=== PATIENT | female | born 1960 | race Two or more races ===

== ENCOUNTER 2019-09-07 13:40 | Emergency (ER) | payer MEDICAID, MEDICARE ==
[~2019-09-07] VITALS: Ht 162.6 cm; Wt 70.0 kg
[~2019-09-07 13:40] MED LIST: B CO1TAB6 PO; CARB200T PO; KEPP250 PO; LAMO50TA3 PO; MEGE40TA27 PO; PHEN-434 PO; TEMA7.5C PO
[2019-09-07 14:19] VITALS: BP 147/71
[2019-09-07] MEDS ORDERED: SODIUM CHLORIDE 0.9% 1,000 ML IV ONE (14:41)
[2019-09-07] MEDS ORDERED: MECLIZINE 25MG TABLET PO ONE (14:45)
[2019-09-07 14:58] LABS: BASOPHILS % 0.3 % (0.0-2.0); EOSINOPHILS % 0.2 % (0.0-5.0); HEMATOCRIT. 40.8 % (36.0-48.0); HEMOGLOBIN. 13.8 g/dL (12.0-16.0); LYMPHOCYTES % 24.8 % (20.0-50.0); MEAN CORPUSCULAR HEMOGLOBIN 30.7 pg (28.0-32.0); MEAN CORPUSCULAR VOLUME 90.8 fL (81.0-99.0); MEAN PLATELET VOLUME 8.7 fl (7.4-10.4); MONOCYTES % 7.3 % (2.0-8.0); NEUTROPHILS % 67.4 % (40.0-76.0); PLATELET 187 x1000/uL (130-400); RED BLOOD CELL COUNT 4.49 mill/uL (4.2-5.4); RED CELL DISTRIBUTION WIDTH 13.2 % (11.6-14.6)
[2019-09-07 15:34] LABS: CHLORIDE 105 mEq/L (98-107)
== END 2019-09-07 17:32 | disposition home or self-care (01) ==
LOC: ER 13:40
DX: R42 Dizziness and giddiness (principal); G40.909 Epilepsy, unspecified, not intractable, without status epilepticus
CPT/HCPCS: 36415; 71045; 80053; 85025; 93005; 96360; 99284; J7030; J8597

== ENCOUNTER 2023-07-25 11:54 | Emergency (ER) | payer MEDICARE, MEDICAID ==
[~2023-07-25] VITALS: Ht 157.5 cm; Wt 45.0 kg
[~2023-07-25 11:54] MED LIST changes: -CARB200T PO; +DIVAL250 PO; -KEPP250 PO; +KEPP500 PO; -MEGE40TA27 PO; +MEGE40TA5 PO; -PHEN-434 PO; +PHEN100C12 PO
[2023-07-25 11:56] VITALS: O2SAT 98
[2023-07-25 12:48] LABS: BASOPHILS % 0.4 % (0.0-2.0); HEMOGLOBIN. 12.7 g/dL (12.0-16.0); LYMPHOCYTES % 7.4 % (20.0-50.0); MEAN CORPUSCULAR HEMOGLOBIN 31.2 pg (28.0-32.0); MEAN CORPUSCULAR HGB CONC 34.3 g/dL (31.0-37.0); MEAN CORPUSCULAR VOLUME 90.9 fL (81.0-99.0); MEAN PLATELET VOLUME 9.4 fl (7.4-10.4); MONOCYTES % 4.9 % (2.0-8.0); NEUTROPHILS % 87.3 % (40.0-76.0); PLATELET 187 x1000/uL (130-400); RED BLOOD CELL COUNT 4.07 mill/uL (4.2-5.4); RED CELL DISTRIBUTION WIDTH 13.5 % (11.6-14.6)
[2023-07-25] MEDS ORDERED: CARBAMAZEPINE 100MG TABLET CHEW PO ONE (13:00)
[2023-07-25] MEDS ORDERED: PHENYTOIN SODIUM EXTENDED 100MG CAPSULE PO ONE (13:00)
[2023-07-25 14:47] LABS: CHLORIDE 107 mEq/L (98-107); INDEX HEMOLYSI 4 (1-3); INDEX ICTERIC 1 (1-4); INDEX LIPEMIC 1 (1-3); SODIUM 139 mEq/L (136-145)
[2023-07-25 15:19] LABS: ALANINE AMINOTRANSFERASE 25 IU/L (13-61); ALBUMIN 3.8 g/dL (3.4-5.0); ASPARTATE AMINOTRANSFERASE 40 IU/L (15-37); BILIRUBIN TOTAL 0.4 mg/dL (0.1-1.0); CALCIUM 8.8 mg/dL (8.5-10.1); CARBON DIOXIDE 24 mEq/L (21-32); CREATININE 0.6 mg/dL (0.6-1.3); ETHANOL BLOOD < 10 mg/dL (-10); GLUCOSE 99 mg/dL (70-105); UREA NITROGEN BLOOD 8 mg/dL (7-21)
[2023-07-25 15:23] LABS: POTASSIUM 3.8 mEq/L (3.5-5.1)
[2023-07-25 15:25] LABS: CARBAMAZEPINE < 0.5 ug/mL (4-12); PHENYTOIN < 0.4 ug/mL (10-20)
[2023-07-25 16:03] LABS: CLARITY URINE CLEAR (CLEAR); COLOR URINE YELLOW (YELLOW); GLUCOSE URINE NEGATIVE (NEGATIVE); KETONES URINE NEGATIVE (NEGATIVE); LEUKOCYTE ESTERASE URINE NEGATIVE (NEGATIVE); NITRITE URINE NEGATIVE (NEGATIVE); OCCULT BLOOD URINE TRACE (NEGATIVE); PROTEIN URINE NEGATIVE (NEGATIVE); SPECIFIC GRAVITY URINE 1.005 (1.005-1.030); UROBILINOGEN URINE 0.2 E.U./dL (0.2-1.0)
[2023-07-25 16:07] LABS: BACTERIA URINE NONE SEEN; RBC URINE 0-2 /hpf (0-2); SQUAMOUS EPITHELIAL CELL URINE NONE SEEN /lpf (RARE/1+); YEAST URINE NONE SEEN
[2023-07-25 16:20] LABS: *AMPHETAMINES SCREEN URINE NEGATIVE (NEGATIVE); *BARBITURATES SCREEN URINE NEGATIVE (NEGATIVE); *BENZODIAZEPINES SCREEN URINE NEGATIVE (NEGATIVE); *COCAINE SCREEN URINE NEGATIVE (NEGATIVE); CANNABINOID URINE SCREEN NEGATIVE (NEGATIVE); ECSTASY MDMA SCREEN URINE NEGATIVE (NEGATIVE); METHADONE URINE SCREEN NEGATIVE (NEGATIVE); OPIATES URINE SCREEN NEGATIVE (NEGATIVE); PHENCYCLIDINE URINE SCREEN NEGATIVE (NEGATIVE)
[2023-07-25] MEDS ORDERED: PHEN100C4 MT (16:34)
[2023-07-25] MEDS ORDERED: [UNRECOGNIZED DRUG - CODE] MT (16:34)
[2023-07-25 16:49] LABS: WBC URINE 0-2 /hpf (0-2)
[2023-07-25 17:01] VITALS: BP 131/75; PULSE 85; RESP 12; TEMP 99.4
== END 2023-07-25 17:48 | disposition home or self-care (01) ==
LOC: ER 12:06
DX: G40.901 Epilepsy, unspecified, not intractable, with status epilepticus (principal); Z91.148 Patient's other noncompliance with medication regimen for other reason
CPT/HCPCS: 36415; 71045; 80053; 80156; 80165; 80185; 80305; 80320; 81003; 82542; 82962; 85025; 99285; G0480

== ENCOUNTER 2025-10-02 09:56 | Emergency (ER) | payer MEDICARE, MEDICAID ==
[~2025-10-02] VITALS: Ht 154.9 cm; Wt 50.0 kg
[~2025-10-02 09:56] MED LIST changes: -B CO1TAB6 PO; -DIVAL250 PO; -KEPP500 PO; +LACO100T2 PO; -LAMO50TA3 PO; +LEVE1000 MT; -MEGE40TA5 PO; -TEMA7.5C PO; +[UNRECOGNIZED DRUG - CODE] PO
[2025-10-02 10:00] VITALS: O2SAT 99
[2025-10-02] MEDS: LEVETIRACETAM 1000MG PREMIX 100 ML IV SCH (10:30)
[2025-10-02 10:48] LABS: BASOPHILS % 0.2 % (0.0-2.0); EOSINOPHILS % 0.5 % (0.0-5.0); HEMATOCRIT. 39.1 % (36.0-48.0); HEMOGLOBIN. 12.8 g/dL (12.0-16.0); LYMPHOCYTES % 17.1 % (20.0-50.0); MEAN PLATELET VOLUME 9.2 fl (7.4-10.4); MONOCYTES % 6.9 % (2.0-8.0); NEUTROPHILS % 75.3 % (40.0-76.0); PLATELET 208 x1000/uL (130-400); RED BLOOD CELL COUNT 4.33 mill/uL (4.2-5.4); RED CELL DISTRIBUTION WIDTH 14.1 % (11.6-14.6)
[2025-10-02 11:04] LABS: CREATININE 0.7 mg/dL (0.6-1.0)
[2025-10-02 11:05] LABS: PHENYTOIN 6.3 ug/mL (10-20); UREA NITROGEN BLOOD 9 mg/dL (9-23)
[2025-10-02 11:06] LABS: LACTATE DEHYDROGENASE 274 IU/L (120-246); TROPONIN I HIGH SENSITIVITY 6 ng/L (3.0-34)
[2025-10-02] MEDS ORDERED: PHEN100C12 PO (11:26)
[2025-10-02] MEDS: PHENYTOIN SODIUM EXTENDED 100MG CAPSULE PO ONE (11:33)
[2025-10-02] MEDS: FAMOTIDINE 20MG/2ML VIAL IV SCH (11:33)
[2025-10-02 13:00] VITALS: BP 142/76; PULSE 72; RESP 14; TEMP 36.6; O2SAT 97
== END 2025-10-02 13:41 | disposition home or self-care (01) ==
LOC: ER 10:03
DX: S00.03XA Contusion of scalp, initial encounter (principal); G40.909 Epilepsy, unspecified, not intractable, without status epilepticus; Z79.899 Other long term (current) drug therapy; W19.XXXA Unspecified fall, initial encounter; Y93.89 Activity, other specified; Y92.89 Other specified places as the place of occurrence of the external cause; Y99.8 Other external cause status
CPT/HCPCS: 80048; 80320; 82550; 80185; 83615; 83735; 85025; 84484; 36415; 71045; 70450; 93005; 96365; 96375; 99285; J1953; J1308; G0480